=== PATIENT | female | born 1945 | race Caucasian/White ===

== ENCOUNTER 2021-05-23 10:28 | Emergency (ER) | payer OTHER, SELFPAY ==
[2021-05-23 10:39] VITALS: BP 114/62; PULSE 87; RESP 16; TEMP 36.6; O2SAT 93
--- NOTE | 2021-05-23 10:39 | ED.GENADUL_ITS ---
Discharge Plan Disposition Patient Disposition: HOME Condition: Stable Discharge Details Clinical Impression: Contusion of rib on left side Primary Care Provider: [facility]Local ED Provider: Homa Zamarripa Home Meds and New Rx's Prescriptions: New carisoprodol [Soma] 350 mg tablet 350 mg PO TID PRN (Reason: muscle pain) Qty: 10 RF: 0 hydrocodone-acetaminophen 10-325 mg tablet 1 tab PO Q8H PRN (Reason: pain) Qty: 7 RF: 0 Continued prednisone 10 mg Tablet 10 mg PO DAILY RF: 0 diltiazem HCl 240 mg Capsule,Extended Release 24hr 240 mg PO .QHS RF: 0 fluoxetine 10 mg Tablet 10 mg PO DAILY RF: 0 cyanocobalamin (vitamin B-12) [Vitamin B-12] 500 mcg Tablet 500 mcg PO DAILY RF: 0 pantoprazole 40 mg Tablet,Delayed Release (Dr/Ec) 40 mg PO DAILY RF: 0 hydrochlorothiazide 25 mg Tablet 25 mg PO DAILY RF: 0 lovastatin 20 mg Tablet 20 mg PO .QHS RF: 0 zolpidem 10 mg Tablet 10 mg PO .QHS RF: 0 olmesartan 40 mg Tablet 40 mg PO DAILY RF: 0 Multivitamin 50 Plus Tablet 1 tab PO DAILY RF: 0 bupropion HCl 300 mg Tablet Extended Release 24 Hr 300 mg PO DAILY RF: 0 Methyl Folate 1,000 mcg PO DAILY RF: 0 calcium carbonate-vitamin D3 600 mg(1,500mg) -200 unit Tablet 1 tab PO DAILY RF: 0 ascorbic acid (vitamin C) [Vitamin C] 500 mg Tablet 500 mg PO BID RF: 0 ropinirole 0.5 mg Tablet 0.5 mg PO QHS RF: 0 raloxifene 60 mg Tablet 60 mg PO DAILY RF: 0 zolpidem 10 mg Tablet 10 mg PO HS RF: 0 coenzyme Q10 [Co Q-10] 100 mg Capsule 100 mg PO DAILY RF: 0 selenium 200 mcg Tablet,Delayed Release (Dr/Ec) 200 mcg PO DAILY RF: 0 Movantik 25 mg Tablet 25 mg PO QAM RF: 0 Probiotic 100 billion cell Capsule 1 cap PO DAILY RF: 0 No Action carisoprodol 350 mg Tablet 350 mg PO PRNRF: 0 hydrocodone-acetaminophen 10-325 mg Tablet 1 tab PO .Q4-6HRS PRNRF: 0 Discharge Instructions Instructions: Rib Contusion (ED) Additional Instructions: Apply ice to the affected area several times daily for 20 minutes at a time. Continue to take your pain medication, muscle relaxer and steroids as directed. Use the incentive spirometer as directed to help with taking deep breaths to prevent the development of pneumonia. Follow-up with your primary care doctor in 1 week. Return to the emergency department with any worsening or new concerning symptoms. Discharge Data Discharge Physician: Homa Zamarripa Medical Decision Making 76-year-old female visiting from [place] presents with left anterior rib pain after mechanical fall 3 days ago onto her left chest. Pain with deep breathing but no difficulty breathing, vomiting or abdominal pain. She is chronically on hydrocodone/acetaminophen, Soma and gabapentin for chronic back pain which she has been taking for her rib pain with some relief. She also hit her left leg which notes ecchymosis to the left thigh and abrasion to left leg but without pain with range of motion, ambulation or deformity. Do not see indication for x-ray imaging of her leg. Her lungs are clear. Her abdomen is soft and nontender without ecchymosis. She has no midline spinal tenderness. Will obtain a left rib and chest x-ray. X-rays reviewed and negative. states that they are traveling up to [place] in the next few days and she has her Vicodin and Soma but states she may need a few more due to this acute injury. A prescription for Vicodin and Soma sent electronically to [facility] in [place]. Advised to follow up with the primary care doctor for re-evaluation. Usual and customary return precautions given prior to discharge. Medical Records Medical records reviewed: Yes I reviewed the patient's medical records. Imaging Data Radiologic Study: Radiologist's impression: XR RIBS LT W PA LAT CHEST CLINICAL HISTORY: fall onto L ribs, r/o fx. COMPARISON: No exams were available for comparison FINDINGS: LUNGS: Scarring greater on the right.. No pleural abnormality seen. HEART: Normal. MEDIASTINUM: Aorta tortuous. BONES: No displaced rib fracture is seen. No bony destructive lesion is seen. No thoracic compression fracture. Degenerative changes left shoulder. OTHER FINDINGS: None. IMPRESSION: 1. Unremarkable radiographic appearance of the left ribs. 2. No acute pulmonary findings. HPI General Mode of arrival: ambulatory . Date/Time Provider Initiated Documentation: 05/23/21 10:32 . Limitations to Documentation: no limitations . Information obtained by: patient . HPI Narrative: Patient is a 76-year-old female who presents with left anterior rib pain after fall around a campfire 3 days ago. Patient states she did not see an object on the ground and slipped and hit her left chest on the ground. She takes hydrocodone and a muscle relaxer as needed for her chronic back pain and migraines. She has been taking this as needed for pain relief. She denies any new fever, cough, difficulty breathing, vomiting, abdominal pain. She denies head injury, neck pain or back pain that is new since this new injury. She is visiting here from [place]. She states she was diagnosed with cryptogenic organizing pneumonia in August and has been chronically on steroids since then. Patient states she did hit her left leg on the ground as well and sustained some bruising and an abrasion but denies any significant pain at this area and has had no pain with weightbearing or walking. Related Data Home Medications Medication Instructions Recorded Confirmed Methyl Folate 1,000 mcg PO DAILY 05/23/21 Movantik 25 mg PO QAM 05/23/21 05/23/21 Multivitamin 50 Plus 1 tab PO DAILY 05/23/21 05/23/21 Probiotic 1 cap PO DAILY 05/23/21 05/23/21 ascorbic acid (vitamin C) [Vitamin 500 mg PO BID 05/23/21 05/23/21 C] bupropion HCl 300 mg PO DAILY 05/23/21 05/23/21 calcium carbonate-vitamin D3 1 tab PO DAILY 05/23/21 05/23/21 carisoprodol 350 mg PO PRN 05/23/21 carisoprodol [Soma] 350 mg PO TID PRN #10 tab 05/23/21 coenzyme Q10 [Co Q-10] 100 mg PO DAILY 05/23/21 05/23/21 cyanocobalamin (vitamin B-12) 500 mcg PO DAILY 05/23/21 05/23/21 [Vitamin B-12] diltiazem HCl 240 mg PO .QHS 05/23/21 05/23/21 fluoxetine 10 mg PO DAILY 05/23/21 05/23/21 hydrochlorothiazide 25 mg PO DAILY 05/23/21 05/23/21 hydrocodone-acetaminophen 1 tab PO .Q4-6HRS PRN 05/23/21 05/23/21 hydrocodone-acetaminophen 1 tab PO Q8H PRN #7 tab 05/23/21 lovastatin 20 mg PO .QHS 05/23/21 05/23/21 olmesartan 40 mg PO DAILY 05/23/21 05/23/21 pantoprazole 40 mg PO DAILY 05/23/21 05/23/21 prednisone 10 mg PO DAILY 05/23/21 05/23/21 raloxifene 60 mg PO DAILY 05/23/21 05/23/21 ropinirole 0.5 mg PO QHS 05/23/21 05/23/21 selenium 200 mcg PO DAILY 05/23/21 05/23/21 zolpidem 10 mg PO .QHS 05/23/21 05/23/21 zolpidem 10 mg PO HS 05/23/21 05/23/21 Previous Rx's Medication Instructions Recorded carisoprodol [Soma] 350 mg PO TID PRN #10 tab 05/23/21 hydrocodone-acetaminophen 1 tab PO Q8H PRN #7 tab 05/23/21 Allergies Allergy/AdvReac Type Severity Reaction Status Date / Time indomethacin [From Indocin] Allergy Unverified 05/23/21 10:58 Sulfa (Sulfonamide Allergy Unverified 05/23/21 10:58 Antibiotics) Review of Systems All systems reviewed & are unremarkable except as noted in HPI and below Constitutional Constitutional: Reports as per HPI, Denies chills and Denies fever(s) Eyes Eyes: Denies blurry vision ENT Ears, Nose, Mouth, and Throat: Denies dizziness, Denies sore throat and Denies throat swelling Cardiovascular Cardiovascular: Denies chest pain and Denies dyspnea Respiratory Respiratory: Denies cough and Denies dyspnea Gastrointestinal Gastrointestinal: Denies abdominal pain, Denies diarrhea and Denies vomiting Genitourinary Genitourinary: Denies hematuria and Denies dysuria Musculoskeletal Musculoskeletal: Denies back pain and Denies numbness Integumentary/Breasts Skin/Breast: Denies lesions and Denies rash Neurologic Neurologic: Denies dizziness, Denies localized weakness and Denies numbness Allergic/Immunologic Allergic/Immunologic: Denies throat swelling [facility] Medical History (Updated 05/23/21 @ 12:03 by Homa Zamarripa DO) Chronic back pain Cryptogenic organizing pneumonia August 2020, remains on steroids May 2021 Depression HTN (hypertension) Migraine Surgical History (Updated 05/23/21 @ 11:00 by Homa Zamarripa DO) H/O shoulder surgery History of hysterectomy History of lumbar fusion History of total bilateral knee replacement Social History Smoking/Tobacco Use Status: Never Smoking risk assessment performed?: Yes Substance use type: does not use Exam Const General: cooperative, healthy appearing and no acute distress HENMT Head: normal to inspection Face and sinus: normal facial exam Eyes General: appearance normal, both eyes and all related structures Pupils: PERRL EOM: EOM intact bilaterally Neck Neck: normal visual inspection and No submandibular swelling Lymphatic: no lymphadenopathy noted Chest Chest: normal inspection of the chest Chest/axillae images: 1. Tenderness palpation to left anterior chest. No ecchymosis, edema, er ythema, crepitus or open wounds. Resp Effort & Inspection: normal respiratory effort and able to speak in complete sentences Auscultation: clear to auscultation bilaterally Cardio Rate: regular rate Rhythm: regular rhythm GI Inspection: normal to inspection and no abdominal wall ecchymosis Palpation: soft, not firm, not rigid and nontender Auscultation: normal bowel sounds Back/Spine/Pelvis Thoracic/Lumbar Spine: thoracic and lumbar spine normal to inspection Pelvis: no pain with anterior-posterior compression Skin General skin exam: no rashes or lesions noted Neuro General: patient alert, patient awake and patient oriented x3 Cognition: normal cognition Speech: speech normal Motor: muscle tone normal throughout Sensory Exam: no sensory deficits noted Extrem General: normal to inspection, full ROM, capillary refill normal, no calf tenderness bilaterally and no edema Psych Appearance: grossly normal Mental Status: mental status grossly normal Speech and Movement: speech and movement normal Affect: normal affect
--- NOTE | 2021-05-23 10:45 | DI.RAD_ITS ---
Exam(s) XR RIBS LT W PA LAT CHEST CLINICAL HISTORY: fall onto L ribs, r/o fx. COMPARISON: No exams were available for comparison FINDINGS: LUNGS: Scarring greater on the right.. No pleural abnormality seen. HEART: Normal. MEDIASTINUM: Aorta tortuous. BONES: No displaced rib fracture is seen. No bony destructive lesion is seen. No thoracic compressio n fracture. Degenerative changes left shoulder. OTHER FINDINGS: None. IMPRESSION: 1. Unremarkable radiographic appearance of the left ribs. 2. No acute pulmonary findings.
--- OUTSIDE RECORDS SUMMARY | 2021-05-23 10:54 | XMS_ITS ---
:1945 Author Care Team Providers Name Role Phone PAVAN RICHARDSON II, MD Primary Care Provider [phone] Allergies Code Code System Name Reaction Severity Status Onset NKDA ? Medications Name Status Start Date Stop Date ? ? amoxicillin 875 mg-potassium Completed ? 02/2019 clavulanate 125 mg tablet azithromycin 250 mg tablet Completed ? 01/12 baclofen 10 mg tablet Completed ? 01/12/2019 Belsomra 10 mg tablet Active ? Not availa ble bupropion HCl XL 300 mg 24 hr Active ? No t available tablet, extended release carisoprodol 350 mg tablet Active 01/12/2019 Not a vailable cephalexin 500 mg capsule Completed ? 2018 clonazepam 1 mg tablet Completed ? 9 diazepam 10 mg tablet Completed ? 01/12/2019 diazepam 5 mg tablet Completed ? 01/12/2019 DILT-XR 240 mg capsule, extended Active ? Not available release diltiazem ER 180 mg capsule,24 Completed ? 0 01/12/2019 hr,extended release fluoxetine 20 mg capsule Active ? Not shruthi ilable hydrochlorothiazide 12.5 mg tablet Completed ? 01/12/2019 hydrocodone 10 mg-acetaminophen Active 01/12/2019 Not available 325 mg tablet lovastatin 20 mg tablet Active ? Not avai lable meloxicam 15 mg tablet Completed ? 9 olmesartan 20 mg tablet Completed ? 01/13/20 19 olmesartan 20 Active ? Not available mg-hydrochlorothiazide 12.5 mg tablet ondansetron 4 mg disintegrating Completed 01/12/2019 01/12/2019 tablet oxycodone-acetaminophen 10 mg-325 Completed ? 01/12/2019 mg tablet raloxifene 60 mg tablet Active ? Not avai lable ropinirole 0.5 mg tablet Active ? Not shruthi ilable sertraline 100 mg tablet Completed ? 019 sertraline 50 mg tablet Active ? Not avai lable Shingrix (PF) 50 mcg/0.5 mL Completed ? 02/2019 intramuscular suspension, kit trazodone 100 mg tablet Completed ? 01/13/20 19 valsartan 160 Completed ? 01/12/2019 mg-hydrochlorothiazide 12.5 mg tablet Voltaren 1 % topical gel Completed ? 019 zolpidem 10 mg tablet Completed ? 05/21/2019 Problems No Known Problems Procedures Date Name Performed by ? ? Repair of Shoulder Information not avai lable ? Knee Surgery Information not avai lable ? Hysterectomy Information not avai lable ? Back Surgery Information not avai lable Results Lab Results None recorded. Past Encounters None recorded. Social History Tobacco Smoking Status Never Smoker Vaccine List None recorded. Plan of Care Reminders Provider Appointments None ? ? recorded. Lab None ? ? recorded. Referral None ? ? recorded. Procedures None ? ? recorded. Surgeries None ? ? recorded. Imaging None ? ? recorded. Vitals 05/21/2019 01:45PM 3 WEEK FOLLOW-UP Height Weight BMI Blood Pressure 5 ft 6 in 175 lbs 28.2 kg/m2 108/60 mm[Hg] 01/12/2019 11:45AM NEW PATIENT-PSM Height Weight BMI Blood Pressure 5 ft 6 in 170 lbs 27.4 kg/m2 120/70 mm[Hg]
--- OUTSIDE RECORDS SUMMARY | 2021-05-23 10:54 | XMS_ITS ---
:1945 Author Care Team Providers Name Role Phone DR. PAVAN RICHARDSON Referring Provider [phone] Allergies Code Code System Name Reaction Severity Status Onset 5781 RxNorm Indomethacin ? ? Active ? 71996 RxNorm Pravastatin ? ? Active ? Sulfa ? ? Active ? (Sulfonamide Antibiotics) Notes: Some allergies listed in Document: #[id number] could not be added to this patient's chart. Please review this docu ment and add these allergies to the patient's chart manually as needed. Medications Name Status Start Date Stop Date ? ? Ambien 10 mg tablet Active ? Not availabl e Take 1 tablet every day by oral route. Aspir-81 Active ? Not available diltiazem ER (XR/XT) 240 mg capsule,extended release 24 hr, cont rolled Active ? Not available Take 1 capsule every day by oral route. Emgality Pen 120 mg/mL subcutaneous pen injector Active ? Not available inject 1 ML UNDER THE SKIN DIRECTED ONCE monthly Evista Active ? Not available fluoxetine 20 mg capsule Completed ? 019 Take 1 capsule every day by oral route. lovastatin Active ? Not available Barnard 10 mg-325 mg tablet Active ? Not av ailable Take 1 tablet every 4 hours by oral route as needed. olmesartan Completed ? 05/23/2020 ondansetron 4 mg disintegrating tablet Active ? Not available ropinirole 0.5 mg tablet Active ? Not shruthi ilable Take 1 tablet 3 times a day by oral route. sertraline 100 mg tablet Active ? Not shruthi ilable Take 1 tablet every day by oral route. Soma 350 mg tablet Active ? Not available Take 1 tablet as needed by oral route. Valium 10 mg tablet Completed ? 05/23/2020 1 tab po 45 minutes prior to MRI Wellbutrin XL 300 mg 24 hr tablet, extended release Active ? Not available Take 1 tablet every day by oral route. Notes: Past meds: Prozac, Wellbu michael, Zoloft, Olmesartan, Diltiazem, Emgality Problems None recorded. Procedures Date Name Performed by ? ? Lumbar Spine Surgery Information not shruthi ilable Notes: x 3 ? Shoulder Surgery Information not avai lable ? Knee Surgery Information not avai lable Notes: Bilat TKA 07/24/2019 MRI, Brain, W/o Contrast [facility] [address] [place] [address] (Work Place) 09/24/2019 US, Carotid Artery [facility] ([facility] Outpatient Scheduling) [address] [place] [address] (Work Place) 11/23/2019 NM, Bone Scan, Whole Body [facility] ([facility] Outpatient Scheduling) [address] [place] [address] (Work Place) Notes: x 2 Results Lab Results Date Name Specimen Result Interpretation Description Value Range Status Address ? 05/23/2020 CMP, Serum ? No observation ? ? ? [facility] or Plasma recorded. [facility] (Lab): [address] [facility] 05/23/2020 CBC W/ Auto ? No observation ? ? ? [facility] Diff recorded. [facility] (Lab): [address] [facility] Past Encounters 05/23/2020 Chronic Migraine without Aura; Chronic N rox Pain; Chronic Low Back Pain; Mood Disorder; Cerebrovascular Disease Ulises Weaver MD: [address] [address], Ph. 11/23/2019 Migraine without Aura; Chronic Migraine without Aura; Chronic Neck Pain; Mood Disorder; Cerebrovascular Disease; MRI Scan Abnormal Ulises Weaver MD: [address] [facility] [address], [place] [address], Ph. Social History Tobacco Smoking Status Never Smoker Vaccine List None recorded. Plan of Care Reminders Provider Appointments None ? ? recorded. Lab None ? ? recorded. Referral None ? ? recorded. Procedures None ? ? recorded. Surgeries None ? ? recorded. Imaging None ? ? recorded. Vitals Height Weight BMI 5 ft 6 in 170 lbs 27.4 kg/m2
--- OUTSIDE RECORDS SUMMARY | 2021-05-23 10:54 | XMS_ITS ---
:1945 Author Care Team Providers Name Role Phone CHRISTI PEARL MD OTHER [phone] AYDIN CUMMINGS [employer] Senior Developer [phone] PAVAN RICHARDSON II, MD Primary Care Provider [phone] Allergies Code Code System Name Reaction Severity Status Onset 20330211 RxNorm Indocin Dizziness ? Active ? 26031 RxNorm Pravastatin Rash ? Active ? Sulfa ? ? Active ? (Sulfonamide Antibiotics) Medications Name Status Start Date Stop Date ? ? Ambien 10 mg tablet Active ? Not availabl e Take 1 tablet every day by oral route. bupropion HCl (bulk) Active ? Not availab le 300mg po daily calcium Active ? Not available 600/with D carisoprodol 350 mg tablet Active ? Not a vailable Take 1 tablet as needed by oral route. clonazepam 1 mg disintegrating tablet Active ? Not available Place 1 tablet as needed by translingual route. diltiazem 90 mg tablet Active ? Not avail able Take 2 tablets 3 times a day by oral route. Diovan 160 mg tablet Completed ? 04/04/2018 Take 1 tablet every day by oral route. Dulcolax (bisacodyl) Completed ? 04/04/2018 prn Dulcolax (bisacodyl) 5 mg tablet,delayed release Active ? Not available Take 2 tablets by oral route as directed for 1 day. Hydrocodone Active ? Not available prn lovastatin 20 mg tablet Active ? Not avai lable Take 1 tablet every day by oral route in the evening. Metamucil Active ? Not available olmesartan 20 mg-hydrochlorothiazide 12.5 mg tablet Active ? Not available Take 1 tablet every day by oral route. ondansetron 4 mg disintegrating tablet Active ? Not available Take 1 tablet as needed by oral route. raloxifene 60 mg tablet Active ? Not avai lable Take 1 tablet every day by oral route. ropinirole 0.5 mg tablet Active ? Not shruthi ilable Take 1 tablet every day by oral route at bedtime. sertraline 50 mg tablet Active ? Not avai lable Take 1 tablet every day by oral route. Suprep Bowel Prep Kit 17.5 gram-3.13 gram-1.6 gram oral solution Active ? Not available Take 117 mL twice a day by oral route as directed for 1 day. triamcinolone (bulk) Completed ? 04/04/2018 triamcinolone/Acetonide cream Notes: triam Problems None recorded. Procedures Date Name Performed by ? 03/25/2020 Egd Information not avai lable 03/25/2020 Colonoscopy Information not avai lable Notes: ih 5 yr recall 04/09/2018 Upper Gi Endoscopy Performed Information not available 08/09/2014 Colonoscopy Information not avai lable ? Appendectomy Information not avai lable ? Back Surgery Information not avai lable ? Ear Tube Information not avai lable ? Hysterectomy Information not avai lable ? Joint Replacement Information not avai lable ? Knee Surgery Information not avai lable ? Reconstructive Surgery Information not a vailable ? Tonsillectomy Information not avai lable 12/10/2019 CT, Chest + Abdomen, W/ Contrast [facility] ([facility] Outpatient Scheduling) [address] [place] [address] (Work Place) 12/17/2019 MRI, Liver, W/ Contrast [facility] ([facility] Outpatient Scheduling) [address] [place] [address] (Work Place) Results Lab Results Date Name Specimen Result Interpretation Description Value Range Status Address ? 03/25/2020 Pathology ? No observation ? ? ? [facility] recorded. [employer] [facility]: [address], [place] Past Encounters 12/17/2019 Right Upper Quadrant Pain; Lesion of Neva er Aditya Cohen MD: [address] [place] [address], Ph. 12/10/2019 Right Upper Quadrant Pain; Constipation; History of Polyp of Colon Aditya Cohen MD: [address] [place] [address], Ph. Social History Tobacco Smoking Status Never Smoker Vaccine List None recorded. Plan of Care Reminders Provider Appointments None ? ? recorded. Lab None ? ? recorded. Referral None ? ? recorded. Procedures None ? ? recorded. Surgeries None ? ? recorded. Imaging None ? ? recorded. Vitals 12/17/2019 02:45PM Telehealth Height Weight BMI 5 ft 6 in 169 lbs 27.3 kg/m2 12/10/2019 12:30PM Telehealth Height Weight BMI 5 ft 6 in 169 lbs 27.3 kg/m2 04/04/2018 09:45AM EST PT CONSULT Height Weight BMI Blood Pressure 5 ft 6 in 176.2 lbs 28.4 kg/m2 120/79 mm[Hg] 07/22/2017 10:00AM NEW PATIENT Height Weight BMI Blood Pressure 5 ft 6 in 187.6 lbs 30.3 kg/m2 152/84 mm[Hg]
--- NOTE | 2021-05-23 12:04 | NUR.NOTE ---
feels like she is getting a migraine. took her own carisoprodol and hydrocodone.Nursing Note:
[2021-05-23 12:20] VITALS: BP 110/60; PULSE 82; RESP 16; TEMP 36.2; O2SAT 93
== END 2021-05-23 12:18 | disposition home or self-care (01) ==
PROVIDERS: Emergency Provider Physician Assistant
DX: S20.212A Contusion of left front wall of thorax, initial encounter (principal); W01.0XXA Fall on same level from slipping, tripping and stumbling without subsequent striking against object, initial encounter
CPT/HCPCS: 99283; 71046; 71100